=== PATIENT | male | born 1960 | race Caucasian/White ===

== ENCOUNTER 2017-04-17 10:56 | Emergency (ER) | payer BC ==
[2017-04-17] MEDS ORDERED: diphenhydrAMINE HCL 50 MG CAPSULE PO ONE ×2 (12:43→13:01)
[2017-04-17] MEDS ORDERED: IBUPROFEN 600 MG TABLET PO ONE (12:43)
[2017-04-17] MEDS ORDERED: predniSONE 20 MG TABLET PO ONE (12:43)
--- NOTE | 2017-04-17 12:44 | ERNOTE ---
Integumentary HPI - Narrative Date of Service: 04/17/17 - General Presenting Symptoms: insect bite Time Seen by Provider: 04/17/17 12:36 Source: patient, family, RN notes reviewed Exam Limitations: no limitations - Immun/Allergies/Home Medications Immunizations: IMMUNIZATION HX History of Influenza Vaccine Yes Allergies/Adverse Reactions: Allergies Allergy/AdvReac Type Severity Reaction Status Date / Time No Known Allergies Allergy Unverified 04/17/17 11:04 Home Medications: HOME MEDICATIONS Amlodipine Besylate [Norvasc] 2.5 mg PO DAILY 04/17/17 [Last Taken Unknown] Enalapril Maleate [Vasotec] 5 mg PO DAILY 04/17/17 [Last Taken Unknown] Triamcinolone Acetonide [Kenalog 0.1%] 15 gm TP TID #1 tube 04/17/17 [Last Taken Unknown] predniSONE [Prednisone] 1 tab PO DAILY #3 tab 04/17/17 [Last Taken Unknown] - History of Present Illness Narrative: 56 y/o male ambulatory to the ED with his for a wasp sting to the dorsum of his left hand. This happened at about 0900 this morning. Date (Duration): 04/17/17 Time (Timing): 09:00 Quality: Reports: itching, painful Severity: moderate Exposure: Reports: bee/wasp sting Associated Symptoms: Reports: swelling/mass/lumps Review of Systems - Review of Systems Constitutional: Present: no symptoms reported EYE: Present: no symptoms reported ENT: Absent: nose congestion, throat swelling Respiratory: Absent: shortness of breath, cough, wheezing, stridor Cardiology: Present: no symptoms reported Gastrointestinal/Abdominal: Absent: nausea, vomiting Genitourinary: Present: no symptoms reported Musculoskeletal: Absent: joint pain, joint swelling Skin: Present: change in color. Absent: rash, lesions Neurological: Absent: dizziness/light-headedness, weakness, numbness, tingling Endocrine: Present: no symptoms reported Hematologic/Lymphatic: Present: no symptoms reported Psych: Present: no symptoms reported - Patient's Past Medical History Patient History - Medical: Hypothyroidism Patient History - Cardiac/Respiratory: Hypertension, Hyperlipidemia Patient History - Cancer: No Hx of Cancer Patient History - Surgical Procedures: Other - Social History Living Situations: home Psych History: No pertinent hx Smoking Status: Current every day smoker Alcohol Use: none Drug Use: none - Immunizations Immunizations Up to Date: Yes History of Influenza Vaccine: Yes Physical Exam - Physical Exam General Appearance: Present: wd/wn, alert, no apparent distress Neck: Present: normal inspection, nontender, supple, full range of motion Respiratory: Present: no respiratory distress, normal breath sounds, no accessory muscle use, lungs clear Cardiovascular/Chest: Present: regular rate, rhythm, no murmur, normal peripheral pulses Extremity Exam: Present: normal range of motion, extremity edema - severe - left hand. Absent: joint redness, joint swelling Neurological Exam: Present: alert, oriented, normal mood/affect, no motor/ sensory deficits Skin Exam: Present: warm/dry, other - erythema present to left hand ED Progress - Vital Signs Patient's Vital Signs:: I have reviewed the patient's vital signs. Vital Signs: Vital Signs 04/17/17 10:59 Temperature 36.8 C Pulse Rate 94 Respiratory 12 Rate Blood Pressure 149/101 O2 Sat by Pulse 96 Oximetry - Progress/Reassessment Chief Complaint: Insect Bite Progress:: Unchanged Departure Clinical Impression: Wasp sting Qualifiers: Encounter type: initial encounter Injury intent: undetermined intent Qualified Code(s): T63.464A - Toxic effect of venom of wasps, undetermined, initial encounter - Departure Disposition: Home self-care Condition: Good Instructions: Bee, Wasp, or Hornet Sting Additional Instructions: Ice and elevate Ibuprofen every 6 hours as needed for pain/swelling Benadryl or Zyrtec for itching Start prednisone prescription tomorrow, take with food Prescriptions: Triamcinolone Acetonide [Kenalog 0.1%] 15 gm TP TID #1 tube predniSONE [Prednisone] 1 tab PO DAILY #3 tab
[2017-04-17] MEDS ORDERED: predniSONE 20 MG TABLET ONE (13:01)
[2017-04-17] MEDS ORDERED: IBUPROFEN 600 MG TABLET ONE (13:01)
[2017-04-17 13:08] VITALS: BP 158/98
== END 2017-04-17 13:09 | disposition home or self-care (01) ==
LOC: ER 10:56
DX: T63.464A Toxic effect of venom of wasps, undetermined, initial encounter (principal); W57.XXXA Bitten or stung by nonvenomous insect and other nonvenomous arthropods, initial encounter; Y93.9 Activity, unspecified; Y92.9 Unspecified place or not applicable; I10 Essential (primary) hypertension; E78.5 Hyperlipidemia, unspecified; Z72.0 Tobacco use